=== PATIENT | male | born 1965 | race Caucasian/White ===

== ENCOUNTER 2016-03-31 13:18 | Emergency (ER) | payer MEDICARE, MEDICAID ==
[2016-03-31] MEDS ORDERED: NS 1,000 ML IV ONE ×3 (13:46→18:19)
[2016-03-31] MEDS ORDERED: SODIUM CHLORIDE 0.9% 10 ML FLUSH FLUSH PRN (13:46)
[2016-03-31 13:53] VITALS: BMI 34.4
--- NOTE | 2016-03-31 13:56 | EDPRACDOC ---
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 I AND D FOR SEROMA IN OFFICE AT [facility] YESTERDAY. HERE WITH VOMITING. ST NOTED; ELEVATED WBC AND BANDS. CT ABD/ PELVIS ORDERED. APPARENTLY HAD MESH FOR VENTRAL HERNIA VIT K, FFP, ZOSYN ADDED. 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 Pt c/o n/v and decreased appetite. Pt had a seroma/hematoma drained yesterday by surgeon at [facility] in his office. Pt has wound packed and colostomy bag placed over wound for drainage. 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 Treated With Medication WEB PRODUCTION MANAGER YES Medications WEB PRODUCTION MANAGER (Medication/ ZOFRAN 4MG IV-EMS Dose/Time) NS 500 NS BOL[facility]-EMS EMS Treatment ALS IV Yes <Opal Lind - Last Filed: 03/31/16 22:04> - General Information Chief Complaint: Neuro Symptoms/Deficits Stated Complaint: LOW B/P Time Seen by Provider: 03/31/16 13:45 Home Medications: Home Medications CITALOPRAM (anti-depressant) [Celexa] 10 mg PO DAILY 03/21/12 Metoprolol Tartrate [Lopressor] 50 mg PO DAILY 03/21/12 Hum Insulin NPH/Reg Insulin Hm [Humulin 70-30 Pen] 30 units SQ TID 10/18/13 MetFORMIN (Immediate Release) [GLUCOPHAGE Immed Release] 1,000 mg PO QAM [place]-3 Fatty Acids/Fish Oil [Fish Oil 1,000 mg Softgel] 2,000 mg PO BID Simvastatin 10 mg PO QHS 02/25/14 Fluticasone/Salmeterol [Advair 250-50] 1 puff INH DAILY 06/07/15 Canagliflozin [Invokana] 300 mg PO DAILY 03/31/16 Fenofibrate 160 mg PO DAILY 03/31/16 Lisinopril [Zestril] 2.5 mg PO DAILY 03/31/16 MetFORMIN (Immediate Release) [GLUCOPHAGE Immed Release] 500 mg PO QHS 03/31/16 Warfarin Sodium [Coumadin] 9 mg PO SUTUTHSA 03/31/16 Warfarin Sodium [Coumadin] 10 mg PO MOWEFR 03/31/16 Allergies/Adverse Reactions: Allergies Allergy/AdvReac Type Severity Reaction Status Date / Time No Known Allergies Allergy Verified 03/31/16 13:53 - Treatment Prior to ED Arrival Reported 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/Treatment 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 PRODUCTION 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 Treated With Medication WEB PRODUCTION MANAGER YES Medications WEB PRODUCTION MANAGER (Medication/ ZOFRAN 4MG IV-EMS Dose/Time) NS 500 NS [facility]-EMS EMS Treatment ALS IV Yes <Cesario Lacey - Last Filed: 03/31/16 15:14> - Treatment Prior to ED Arrival Reported Medications/Treatment 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 PRODUCTION MANAGER Treated With Medication WEB PRODUCTION MANAGER YES Medications WEB PRODUCTION MANAGER (Medication/ ZOFRAN 4MG IV-EMS Dose/Time) NS 500 NS [facility]-EMS EMS Treatment ALS IV Yes <Cassia Lee - Last Filed: 03/31/16 17:28> - Treatment Prior to ED Arrival Reported Medications/Treatment 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 negative: Redness, Blurred Vision, Double Vision, Discharge, Pain, Light Sensitive, Photophobia Ears: No Symptoms Reported. negative: Pain, Hearing Loss, Drainage, Ear Pulling Throat: No Symptoms Reported. negative: Pain, Swelling Nose: No Symptoms Reported. negative: Congestion, Bleeding, Discharge, Injection, Swelling, Deformity, Ecchymosis, Tender, Abrasion, Laceration Mouth: No Symptoms Reported. negative: Pain, Drooling Respiratory: No Symptoms Reported. negative: Cough, Brassy Cough, Barky Cough, Shortness of Breath, Wheezing, Hemoptysis Cardiovascular: No Symptoms Reported. negative: Chest Pain, Palpitations, Syncope, Edema, Orthopnea, PND, Skin Mottling, Cyanosis Gastrointestinal: Nausea, Vomiting Genitourinary: No Symptoms Reported. negative: Dysuria, Hematuria, Frequency, Discharge, Bleeding, Testicular Pain, Neurological: No Symptoms Reported. negative: Headache, Dizziness, Seizure, Numbness, Weakness, Speech Difficulty, Gait Difficulty Musculoskeletal: No Symptoms Reported. negative: Neck, Chestwall, Ribs, Back, Shoulder, Arm, Elbow, Forearm, Wrist, Hand, Pelvis, Hip, Femur, Knee, Leg, Ankle , Foot Integumentary: Wound Allergic/Immunologic: No Symptoms Reported. negative: Hives, Itching Hematologic: No Symptoms Reported. negative: Lymphadenopathy, Easy Bruising, Easy Bleeding Psychiatric: No Symptoms Reported. negative: Anxiety, Depression, Hallucinations, Insomnia, Suicidal <Cassia Lee Eloisa - Last Filed: 03/31/16 17:28> - Physical Exam Last recorded Vital Signs: Last Vital Signs Temp 98.2 F 03/31/16 13:30 Pulse 131 H 03/31/16 14:38 Resp 20 03/31/16 14:38 BP 110/72 03/31/16 14:38 Pulse Ox 93 03/31/16 14:38 Oxygen Pulse Oxygen Saturation 93 O2 Device Oxygen Flow Rate Fraction of Inspired Oxygen ( FIO2) <Cesario Lacey - Last Filed: 03/31/16 15:14> - Physical Exam Constitutional: Alert Oriented to: Time, Person, Place Last recorded Vital Signs: Last Vital Signs Temp 98.2 F 03/31/16 13:30 Pulse 126 H 03/31/16 13:30 Resp 22 03/31/16 13:30 BP 98/57 L 03/31/16 13:30 Pulse Ox 93 03/31/16 13:30 Oxygen Pulse Oxygen Saturation 93 O2 Device Oxygen Flow Rate Fraction of Inspired Oxygen ( FIO2) - HEENT Head: Normal ( normocephalic) Eye Exam: Pale Conjunctiva Tympanic Membrane: Normal ENT EAC: Normal TMJ: Normal Nose: No Symptoms Reported (septum midline) Neck: Normal (FROM, trachea at midline) - Respiratory/Cardiovascular Respiratory: Normal - CTA (BBS clear to auscultation without adventitious sounds ) Cardiovascular: Tachycardia - GI Auscultation: Normal (NABS) Palpation: Normal (Soft,No rebound or guarding, non distended) Tenderness: Non tender, Other (open wound at epigastric area with colostomy draining blood) - Musculoskeletal Back: Normal (Non-Tender) Extremities: Normal (Normal tone, Pulses 2+ No cyanosis or edema, FROM) - Integumentary Skin: Normal, Warm, Dry Lymphatics: Normal (no adenopathy) - Neurologic Memory Impaired: Normal Motor Function: Normal (Normal tone, Pulses 2+ No cyanosis or edema, FROM) Mood Description: Normal Perception: Normal <Cassia Lee - Last Filed: 03/31/16 17:28> - Physical Exam Last recorded Vital Signs: Last Vital Signs Temp 98.2 F 03/31/16 13:30 Pulse 130 H 03/31/16 15:08 Resp 20 03/31/16 15:08 BP 110/72 03/31/16 15:08 Pulse Ox 93 03/31/16 15:08 Oxygen Pulse Oxygen Saturation 93 O2 Device Oxygen Flow Rate Fraction of Inspired Oxygen ( FIO2) <Opal Lind - Last Filed: 03/31/16 22:04> - Results 03/31/16 14:05 03/31/16 14:05 WBC 16.9 xk/uL (3.8-10.8) H 03/31/16 14:05 RBC 4.43 xM/uL (4.70-6.10) L 03/31/16 14:05 Hgb 11.9 g/dL (14.0-18.0) L 03/31/16 14:05 Hct 36.7 % (42-52) L 03/31/16 14:05 MCV 83 fL (80-94) 03/31/16 14:05 MCH 26.8 pg (27-32) L 03/31/16 14:05 MCHC 32.4 g/dl (33-36) L 03/31/16 14:05 RDW 16.1 % (11.5-14.5) H 03/31/16 14:05 Plt Count 642 xk/uL (130-400) H 03/31/16 14:05 MPV 6.5 fL (7.4-10.4) L 03/31/16 14:05 Neut % (Auto) Cancelled 03/31/16 14:05 Lymph % (Auto) Cancelled 03/31/16 14:05 [place] % (Auto) Cancelled 03/31/16 14:05 Eos % (Auto) Cancelled 03/31/16 14:05 Baso % (Auto) Cancelled 03/31/16 14:05 Absolute Neuts (auto) Cancelled 03/31/16 14:05 Absolute Lymphs (auto) Cancelled 03/31/16 14:05 Seg Neuts % (Manual) 55 % (45-76) 03/31/16 14:05 Band Neutrophils % 36 % (0-5) H 03/31/16 14:05 Lymphocytes % (Manual) 3 % (17-44) L 03/31/16 14:05 Monocytes % (Manual) 6 % (0-10) 03/31/16 14:05 Absolute Neutrophils 15.38 xk/uL (1.7-8.2) H 03/31/16 14:05 Absolute Lymphocytes 0.51 xk/uL (0.65-4.75) L 03/31/16 14:05 Platelet Estimate Inc (NORMAL) Large plts present (NORMAL) 03/31/16 14:05 Platelet Estimate Inc (NORMAL) Large plts present (NORMAL) 03/31/16 14:05 RBC Morphology 1+ aniso 1+ hypo 1+ polychrom 03/31/16 14:05 RBC Morphology 1+ aniso 1+ hypo 1+ polychrom 03/31/16 14:05 RBC Morphology 1+ aniso 1+ hypo 1+ polychrom 03/31/16 14:05 PT 145.4 SEC (9.2-11.2) H 03/31/16 14:05 INR 13.8 H* 03/31/16 14:05 APTT 81.1 SEC (22-35) H 03/31/16 14:05 Sodium 135 mEq/L (137-146) L 03/31/16 14:05 Potassium 4.5 mEq/L (3.5-5.1) 03/31/16 14:05 Chloride 100 mEq/L (98-107) 03/31/16 14:05 Carbon Dioxide 25 mMOL/L (22-33) 03/31/16 14:05 Anion Gap 15 mEq/L (8-16) 03/31/16 14:05 BUN 12 MG/DL (9-20) 03/31/16 14:05 Creatinine 0.90 MG/DL (0.66-1.25) 03/31/16 14:05 Estimated GFR (MDRD) > 60 mL/min (>=60) 03/31/16 14:05 Glucose 134 MG/DL (70-99) H 03/31/16 14:05 Calculated Osmolality 262 MOs/Kg (270-290) L 03/31/16 14:05 Lactic Acid 2.2 mEq/L (0.7-2.1) H 03/31/16 14:05 Calcium 8.4 MG/DL (8.4-10.2) 03/31/16 14:05 Corrected Calcium 9.3 MG/DL (8.4-10.2) 03/31/16 14:05 Total Bilirubin 0.6 MG/DL (0.2-1.3) 03/31/16 14:05 AST 41 IU/L (17-59) 03/31/16 14:05 ALT 45 IU/L (21-72) 03/31/16 14:05 Alkaline Phosphatase 165 IU/L (38-126) H 03/31/16 14:05 Creatine Kinase 43 IU/L (55-170) L 03/31/16 14:05 Troponin I < 0.01 ng/mL (<.04) 03/31/16 14:05 Total Protein 7.0 G/DL (6.3-8.2) 03/31/16 14:05 Albumin 3.1 G/DL (3.5-5.0) L 03/31/16 14:05 Lipase 60 U/L (23-300) 03/31/16 14:05 Lab Results 03/31/16 03/31/16 03/31/16 14:05 14:05 14:05 WBC 16.9 H RBC 4.43 L Hgb 11.9 L Hct 36.7 L MCV 83 MCH 26.8 L MCHC 32.4 L RDW 16.1 H Plt Count 642 H MPV 6.5 L Neut % (Auto) Cancelled Lymph % (Auto) Cancelled [place] % (Auto) Cancelled Eos % (Auto) Cancelled Baso % (Auto) Cancelled Absolute Neuts (auto) Cancelled Absolute Lymphs (auto) Cancelled Seg Neuts % (Manual) 55 Band Neutrophils % 36 H Lymphocytes % (Manual) 3 L Monocytes % (Manual) 6 Absolute Neutrophils 15.38 H Absolute Lymphocytes 0.51 L Platelet Estimate Large plts present RBC Morphology 1+ polychrom PT 145.4 H INR 13.8 H* APTT 81.1 H Sodium Potassium Chloride Carbon Dioxide Anion Gap BUN Creatinine Estimated GFR (MDRD) Glucose Calculated Osmolality Lactic Acid 2.2 H Calcium Corrected Calcium Total Bilirubin AST ALT Alkaline Phosphatase Creatine Kinase Troponin I Total Protein Albumin Lipase 03/31/16 14:05 WBC RBC Hgb Hct MCV MCH MCHC RDW Plt Count MPV Neut % (Auto) Lymph % (Auto) [place] % (Auto) Eos % (Auto) Baso % (Auto) Absolute Neuts (auto) Absolute Lymphs (auto) Seg Neuts % (Manual) Band Neutrophils % Lymphocytes % (Manual) Monocytes % (Manual) Absolute Neutrophils Absolute Lymphocytes Platelet Estimate RBC Morphology PT INR APTT Sodium 135 L Potassium 4.5 Chloride 100 Carbon Dioxide 25 Anion Gap 15 BUN 12 Creatinine 0.90 Estimated GFR (MDRD) > 60 Glucose 134 H Calculated Osmolality 262 L Lactic Acid Calcium 8.4 Corrected Calcium 9.3 Total Bilirubin 0.6 AST 41 ALT 45 Alkaline Phosphatase 165 H Creatine Kinase 43 L Troponin I < 0.01 Total Protein 7.0 Albumin 3.1 L Lipase 60 <Cesario Lacey - Last Filed: 03/31/16 15:14> - Differential Diagnosis Anemia, Dysrhythmia, Dehydration, Electrolyte Disorder, Hypoglycemia, Vasovagal - Results 03/31/16 14:05 03/31/16 14:05 - EKG EKG #1 EKG Time: 13:36 Rate: bpm: 126 Isabel: Normal Rhythm: ST Block: None ST: Normal - Diagnostic Imaging Head Image interpreted by: Radiologist IMPRESSION: Negative non contrast appearance of the brain. No acute traumatic injury identified. Chest Image interpreted by: Radiologist IMPRESSION: No acute cardiopulmonary findings. Abdomen Image interpreted by: Radiologist IMPRESSION: 1. Very large (30.1 by 18.9 by 10.4 cm 0) collection of multiloculated gas and complex fluid in the anterior abdominal wall, suspicious for abscess or infected hematoma. This appears to be drained out to the scan in the subxiphoid region, although may have loculated components. The sub xiphoid drainage site resembles in enterostomy but I do not see a connecting loop of bowel. There are closely associated loops of small bowel in the transverse colon is near the posterior margin of this mass. There appears to be an anastomotic staple line in the colon at the rectosigmoid junction. If there is a mesh in this vicinity, given all the gas densities I am concerned that it is probably infected. There is stranding in the adjacent omentum and subcutaneous tissues. 2. Bilateral nonobstructive renal calculi. 3. 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 <Cassia Lee E - Last Filed: 03/31/16 17:28> - Results 03/31/16 14:05 03/31/16 14:05 WBC 16.9 xk/uL (3.8-10.8) H 03/31/16 14:05 RBC 4.43 xM/uL (4.70-6.10) L 03/31/16 14:05 Hgb 11.9 g/dL (14.0-18.0) L 03/31/16 14:05 Hct 36.7 % (42-52) L 03/31/16 14:05 MCV 83 fL (80-94) 03/31/16 14:05 MCH 26.8 pg (27-32) L 03/31/16 14:05 MCHC 32.4 g/dl (33-36) L 03/31/16 14:05 RDW 16.1 % (11.5-14.5) H 03/31/16 14:05 Plt Count 642 xk/uL (130-400) H 03/31/16 14:05 MPV 6.5 fL (7.4-10.4) L 03/31/16 14:05 Neut % (Auto) Cancelled 03/31/16 14:05 Lymph % (Auto) Cancelled 03/31/16 14:05 [place] % (Auto) Cancelled 03/31/16 14:05 Eos % (Auto) Cancelled 03/31/16 14:05 Baso % (Auto) Cancelled 03/31/16 14:05 Absolute Neuts (auto) Cancelled 03/31/16 14:05 Absolute Lymphs (auto) Cancelled 03/31/16 14:05 Seg Neuts % (Manual) 55 % (45-76) 03/31/16 14:05 Band Neutrophils % 36 % (0-5) H 03/31/16 14:05 Lymphocytes % (Manual) 3 % (17-44) L 03/31/16 14:05 Monocytes % (Manual) 6 % (0-10) 03/31/16 14:05 Absolute Neutrophils 15.38 xk/uL (1.7-8.2) H 03/31/16 14:05 Absolute Lymphocytes 0.51 xk/uL (0.65-4.75) L 03/31/16 14:05 Platelet Estimate Inc (NORMAL) Large plts present (NORMAL) 03/31/16 14:05 Platelet Estimate Inc (NORMAL) Large plts present (NORMAL) 03/31/16 14:05 RBC Morphology 1+ aniso 1+ hypo 1+ polychrom 03/31/16 14:05 RBC Morphology 1+ aniso 1+ hypo 1+ polychrom 03/31/16 14:05 RBC Morphology 1+ aniso 1+ hypo 1+ polychrom 03/31/16 14:05 PT 145.4 SEC (9.2-11.2) H 03/31/16 14:05 INR 13.8 H* 03/31/16 14:05 APTT 81.1 SEC (22-35) H 03/31/16 14:05 Sodium 135 mEq/L (137-146) L 03/31/16 14:05 Potassium 4.5 mEq/L (3.5-5.1) 03/31/16 14:05 Chloride 100 mEq/L (98-107) 03/31/16 14:05 Carbon Dioxide 25 mMOL/L (22-33) 03/31/16 14:05 Anion Gap 15 mEq/L (8-16) 03/31/16 14:05 BUN 12 MG/DL (9-20) 03/31/16 14:05 Creatinine 0.90 MG/DL (0.66-1.25) 03/31/16 14:05 Estimated GFR (MDRD) > 60 mL/min (>=60) 03/31/16 14:05 Glucose 134 MG/DL (70-99) H 03/31/16 14:05 Calculated Osmolality 262 MOs/Kg (270-290) L 03/31/16 14:05 Lactic Acid 2.2 mEq/L (0.7-2.1) H 03/31/16 14:05 Calcium 8.4 MG/DL (8.4-10.2) 03/31/16 14:05 Corrected Calcium 9.3 MG/DL (8.4-10.2) 03/31/16 14:05 Total Bilirubin 0.6 MG/DL (0.2-1.3) 03/31/16 14:05 AST 41 IU/L (17-59) 03/31/16 14:05 ALT 45 IU/L (21-72) 03/31/16 14:05 Alkaline Phosphatase 165 IU/L (38-126) H 03/31/16 14:05 Creatine Kinase 43 IU/L (55-170) L 03/31/16 14:05 Troponin I < 0.01 ng/mL (<.04) 03/31/16 14:05 Total Protein 7.0 G/DL (6.3-8.2) 03/31/16 14:05 Albumin 3.1 G/DL (3.5-5.0) L 03/31/16 14:05 Lipase 60 U/L (23-300) 03/31/16 14:05 Urine Color Yellow 03/31/16 15:55 Urine Clarity Hazy 03/31/16 15:55 Urine pH 6.0 (5.0-8.0) 03/31/16 15:55 Ur Specific [place] 1.010 (1.003-1.035) 03/31/16 15:55 Urine Protein 1+ (NEG/TRACE) H 03/31/16 15:55 Urine Glucose (UA) 3+ (NEGATIVE) 03/31/16 15:55 Urine Ketones Neg (NEGATIVE) 03/31/16 15:55 Urine Occult Blood 2+ (NEG/TRACE) H 03/31/16 15:55 Urine Nitrite Neg (NEGATIVE) 03/31/16 15:55 Urine Bilirubin Neg (NEGATIVE) 03/31/16 15:55 Urine Urobilinogen <2.0 MG/DL (0-1) 03/31/16 15:55 Ur Leukocyte Esterase Neg (NEGATIVE) 03/31/16 15:55 Urine RBC 2-5 (0-2) H 03/31/16 15:55 Urine WBC 5-10 (0-2) H 03/31/16 15:55 Ur Epithelial Cells Occ 03/31/16 15:55 Urine Bacteria Few (NEG/FEW) 03/31/16 15:55 Hyaline Casts 0-2 (0-2) 03/31/16 15:55 Urine Mucus Occ (NEG/OCC) 03/31/16 15:55 Urine Sperm Occ (NONE) H 03/31/16 15:55 Blood Type O POSITIVE 03/31/16 14:05 Antibody Screen Negative 03/31/16 14:05 Lab Results 03/31/16 03/31/16 03/31/16 15:55 14:05 14:05 WBC RBC Hgb Hct MCV MCH MCHC RDW Plt Count MPV Neut % (Auto) Lymph % (Auto) [place] % (Auto) Eos % (Auto) Baso % (Auto) Absolute Neuts (auto) Absolute Lymphs (auto) Seg Neuts % (Manual) Band Neutrophils % Lymphocytes % (Manual) Monocytes % (Manual) Absolute Neutrophils Absolute Lymphocytes Platelet Estimate RBC Morphology PT 145.4 H INR 13.8 H* APTT 81.1 H Sodium Potassium Chloride Carbon Dioxide Anion Gap BUN Creatinine Estimated GFR (MDRD) Glucose Calculated Osmolality Lactic Acid Calcium Corrected Calcium Total Bilirubin AST ALT Alkaline Phosphatase Creatine Kinase Troponin I Total Protein Albumin Lipase Urine Color Yellow Urine Clarity Hazy Urine pH 6.0 Ur Specific [place] 1.010 Urine Protein 1+ H Urine Glucose (UA) 3+ Urine Ketones Neg Urine Occult Blood 2+ H Urine Nitrite Neg Urine Bilirubin Neg Urine Urobilinogen <2.0 Ur Leukocyte Esterase Neg Urine RBC 2-5 H Urine WBC 5-10 H Ur Epithelial Cells Occ Urine Bacteria Few Hyaline Casts 0-2 Urine Mucus Occ Urine Sperm Occ H Blood Type O POSITIVE Antibody Screen Negative 03/31/16 03/31/16 03/31/16 14:05 14:05 14:05 WBC 16.9 H RBC 4.43 L Hgb 11.9 L Hct 36.7 L MCV 83 MCH 26.8 L MCHC 32.4 L RDW 16.1 H Plt Count 642 H MPV 6.5 L Neut % (Auto) Cancelled Lymph % (Auto) Cancelled [place] % (Auto) Cancelled Eos % (Auto) Cancelled Baso % (Auto) Cancelled Absolute Neuts (auto) Cancelled Absolute Lymphs (auto) Cancelled Seg Neuts % (Manual) 55 Band Neutrophils % 36 H Lymphocytes % (Manual) 3 L Monocytes % (Manual) 6 Absolute Neutrophils 15.38 H Absolute Lymphocytes 0.51 L Platelet Estimate Large plts present RBC Morphology 1+ polychrom PT INR APTT Sodium 135 L Potassium 4.5 Chloride 100 Carbon Dioxide 25 Anion Gap 15 BUN 12 Creatinine 0.90 Estimated GFR (MDRD) > 60 Glucose 134 H Calculated Osmolality 262 L Lactic Acid 2.2 H Calcium 8.4 Corrected Calcium 9.3 Total Bilirubin 0.6 AST 41 ALT 45 Alkaline Phosphatase 165 H Creatine Kinase 43 L Troponin I < 0.01 Total Protein 7.0 Albumin 3.1 L Lipase 60 Urine Color Urine Clarity Urine pH Ur Specific [place] Urine Protein Urine Glucose (UA) Urine Ketones Urine Occult Blood Urine Nitrite Urine Bilirubin Urine Urobilinogen Ur Leukocyte Esterase Urine RBC Urine WBC Ur Epithelial Cells Urine Bacteria Hyaline Casts Urine Mucus Urine Sperm Blood Type Antibody Screen - Additional Information PT D/W DR. MARCELLE ABREU (PT'S SURGEON AT [facility]). PT ACCEPTED FOR TRANSFER. No changes in clinical status or new information from previous documentation. Vital Signs: Temp:98.4 F HR: 117 BP: 131/72 RR: 18 Pox: 95%. Continue with current plan. PT REMAINS STABLE FOR TRANSFER <Opal Lind - Last Filed: 03/31/16 22:04> <Cesario Lacey - Last Filed: 03/31/16 15:14> - Departure Disposition: Trans. to Other Hospital Education/Counseling Given To: Patient, Family Member Education/Counseling Given Regarding: Diagnosis, Treatment <Cassia Lee - Last Filed: 03/31/16 17:28> - Departure Yes I personally saw and evaluated the patient. Decision to Transfer Time: 17:28 <Opal Lind - Last Filed: 03/31/16 22:04> - Departure Condition: Stable Final Diagnosis: Bleeding from wound, Supratherapeutic INR, LARGE ABDOMINAL WALL ABSCESS Syncope Qualifiers: Syncope type: unspecified Qualified Code(s): R55 - Syncope and collapse Coumadin toxicity Qualifiers: Encounter type: initial encounter Injury intent: accidental or unintentional Qualified Code(s): T45.511A - Poisoning by anticoagulants, accidental ( unintentional), initial encounter Infected hernioplasty mesh Qualifiers: Encounter type: initial encounter Qualified Code(s): T85.79XA - Infection and inflammatory reaction due to other internal prosthetic devices, implants and grafts, initial encounter Referrals: Christopher Bone MD [Primary Care Provider] - One Week
[2016-03-31] MEDS ORDERED: NS 1,000 ML IV SCH (14:00)
--- NOTE | 2016-03-31 14:16 | DIRPT ---
CLINICAL DATA: Sepsis. Syncopal episode. EXAM: PORTABLE CHEST 1 VIEW COMPARISON: Chest x-ray 10/18/2013 FINDINGS: The cardiac silhouette, mediastinal and hilar contours are within normal limits and stable. The lungs are clear. No pleural effusion. The bony thorax is intact. IMPRESSION: No acute cardiopulmonary findings. Electronically Signed By: Burt Garza M.D. On: 03/31/2016 14:13
[2016-03-31 14:24] LABS: MPV 6.5 fL (7.4-10.4)
[2016-03-31 14:40] LABS: BLOOD UREA NITROGEN 12 MG/DL (9-20); CALC CORRECTED 9.3 MG/DL (8.4-10.2); CALCIUM 8.4 MG/DL (8.4-10.2); CALCULATED OSMOLALITY 262 MOs/Kg (270-290); CHLORIDE 100 mEq/L (98-107); CPK TOTAL WITH POSSIBLE MB 43 IU/L (55-170); GLUCOSE 134 MG/DL (70-99); SODIUM LEVEL 135 mEq/L (137-146)
[2016-03-31 14:49] LABS: PARTIAL THROMB. TIME 81.1 SEC (22-35)
[2016-03-31 15:04] LABS: PT-INR 13.8
[2016-03-31 15:11] LABS: SEG NEUTROPHIL 55 % (45-76)
[2016-03-31] MEDS ORDERED: PIPERACILLIN AND TAZOBACTAM 3.375 GM in D5W 100 ML IV ONE (15:19)
[2016-03-31] MEDS ORDERED: PHYTONADIONE 10 MG in NS 50 ML IV ONE (15:30)
[2016-03-31] MEDS ORDERED: Pharmacy Review for Metformin - IV Contrast Given SCH (16:00)
[2016-03-31 16:44] LABS: LEUKOCYTES/URINE NEG (NEGATIVE); NITRITE/URINE NEG (NEGATIVE); URINE OCCULT BLOOD 2+ (NEG/TRACE)
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
--- NOTE | 2016-03-31 17:22 | DIRPT ---
CLINICAL DATA: Syncope, fell and struck back of head this morning. Dizziness. Abdominal pain. Recent hernia surgery. Partial colectomy. EXAM: CT ABDOMEN AND PELVIS WITH CONTRAST TECHNIQUE: Multidetector CT imaging of the abdomen and pelvis was performed using the standard protocol following bolus administration of intravenous contrast. CONTRAST: 100 cc Isovue 370 COMPARISON: 06/07/2015 FINDINGS: Lower chest: Borderline cardiomegaly. Hepatobiliary: Unremarkable Pancreas: Unremarkable Spleen: Unremarkable Adrenals/Urinary Tract: Adrenal glands normal. 5 mm right mid kidney nonobstructive calculus in a small calyceal diverticulum of the mid kidney. Several small right kidney lower pole cysts are present. 4 mm left kidney lower pole nonobstructive calculus. No ureteral or bladder calculus. Stomach/Bowel: Colon anastomosis of the rectosigmoid junction. Some of the loops of small bowel are closely associated with the anterior abdominal wall but an obvious connection between the bowel and the abnormal anterior wall fluid collection is not definitively seen. Vascular/Lymphatic: Unremarkable Reproductive: Unremarkable Other: There is edema tracking along the omentum, especially the upper omentum. Musculoskeletal: Along the rectus musculature and anterior abdominal wall, and generally situated at about the midline, there is at 31.0 by 18.9 by 10.4 cm collection of gas and complex fluid which may have multiloculated components extending into the subcutaneous tissues. This is apparently a draining out to the anterior skin surface in the subxiphoid region. There is some bandlike connections between the transverse colon in this collection such that a small fistula cannot be excluded, although a definite fistula is not seen. Some of the loops of small bowel are anteriorly positioned and immediately adjacent to this collection as well, but not definitively collect connected. Chronic bilateral pars defects at L5 with grade 1 anterolisthesis but no impingement. IMPRESSION: 1. Very large (30.1 by 18.9 by 10.4 cm 0) collection of multiloculated gas and complex fluid in the anterior abdominal wall, suspicious for abscess or infected hematoma. This appears to be drained out to the scan in the subxiphoid region, although may have loculated components. The sub xiphoid drainage site resembles in enterostomy but I do not see a connecting loop of bowel. There are closely associated loops of small bowel in the transverse colon is near the posterior margin of this mass. There appears to be an anastomotic staple line in the colon at the rectosigmoid junction. If there is a mesh in this vicinity, given all the gas densities I am concerned that it is probably infected. There is stranding in the adjacent omentum and subcutaneous tissues. 2. Bilateral nonobstructive renal calculi. 3. 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 Electronically Signed By: Quincy Diehl M.D. On: 03/31/2016 17:20
[2016-03-31 22:24] VITALS: BP 121/66; PULSE 118; TEMP 98.3
== END 2016-03-31 22:00 | disposition short-term general hospital (02) ==
LOC: ED 13:18
DX: K91.841 Postprocedural hemorrhage of a digestive system organ or structure following other procedure (principal); Y83.8 Other surgical procedures as the cause of abnormal reaction of the patient, or of later complication, without mention of misadventure at the time of the procedure; L02.211 Cutaneous abscess of abdominal wall; R55 Syncope and collapse; T45.511A Poisoning by anticoagulants, accidental (unintentional), initial encounter; T85.79XA Infection and inflammatory reaction due to other internal prosthetic devices, implants and grafts, initial encounter; I10 Essential (primary) hypertension; E78.00 Pure hypercholesterolemia, unspecified; J44.9 Chronic obstructive pulmonary disease, unspecified; E11.9 Type 2 diabetes mellitus without complications; D68.51 Activated protein C resistance; Z79.01 Long term (current) use of anticoagulants; Z79.4 Long term (current) use of insulin; Z79.899 Other long term (current) drug therapy
CPT/HCPCS: 36415; 70450; 71010; 74177; 80053; 81001; 82550; 83605; 83690; 84484; 85007; 85027; 85610; 85730; 86850; 86900; 86901; 87040; 87086; 93005; 96361; 96365; 96366; 99285; A9698; J2543; J3430; J7030; J7060; P9059